=== PATIENT | female | born 1945 | race Caucasian/White ===

== ENCOUNTER → 2023-11-13 07:54 | Outpatient (REF) | payer MEDICARE, OTHER, SELFPAY ==
[2023-11-13 09:17] LABS: Urine Albumin Negative (Neg - Trace); Urine Bilirubin Negative (Negative); Urine Character Clear (Clear); Urine Color Yellow; Urine Glucose Negative (Negative); Urine Ketone Negative (Negative); Urine Leukocyte Negative (Negative); Urine Nitrite Negative (Negative); Urine Occult Blood 2+ (Negative); Urine Urobilinogen Negative (Neg - 1+)
[2023-11-13 09:18] LABS: % Basophils 0.6 % (0-2); % Eosinophils 3.2 % (0-6); % Immature Granulocytes 0.4 % (0-0.5); % Lymphocytes 19.6 % (20.5-51.1); % Monocytes 9.6 % (1.7-9.3); % Neutrophils 66.6 % (42.2-75.2); Absolute Eosinophils 0.2 10^3/uL (0-0.7); Absolute Monocytes 0.5 10^3/uL (0.1-0.6); Absolute Neutrophils 3.3 10^3/uL (1.4-6.5); Hematocrit 41.3 % (37.0-47.0); Hemoglobin 14.2 g/dL (12.0-16.0); Mean Corp Hgb Conc. 34.4 g/dL (33.0-37.0); Mean Corpuscular Hgb 31.2 pg (27.0-31.0); Mean Corpuscular Volume 90.8 fL (81.0-99.0); Mean Platelet Volume 9.5 fL (7.4-10.4); Nucleated Red Blood Cells % 0 %; Platelet Count 172 10^3/uL (130-400); Red Blood Cell Count 4.55 10^6/uL (4.20-5.40)
[2023-11-13 10:07] LABS: ALT (SGPT) 18 U/L (0-35); AST (SGOT) 34 U/L (14-36); Albumin 4.4 g/dl (3.5-5.0); Alkaline Phosphatase 104 U/L (38-126); Blood Urea Nitrogen 27 mg/dl (7-17); Calcium 9.6 mg/dl (8.4-10.2); Carbon Dioxide 29 mmol/L (22-30); Chloride 101 mmol/L (98-107); Glucose 82 mg/dl (70-99); HDL Cholesterol 80 mg/dl; LDL Cholesterol, Calculated 116 mg/dl; Sodium 138 mmol/L (135-145); Total Cholesterol 210 mg/dl (50-199); Total Protein 6.8 g/dl (6.3-8.2); Triglyceride 71 mg/dl (10-149); Very Low Density Lipoprotein 14 mg/dl (0-30); eGFR 58.39
[2023-11-13 10:30] LABS: Urine Red Blood Cell 0-2 /HPF (0-2); Urine White Cell 0-2 /HPF (0-5)
== END ==
LOC: RAD 07:54
PROVIDERS: ATTENDING PHYSICIAN Internal Medicine Geriatric Medicine
DX: E55.9 Vitamin D deficiency, unspecified (principal); Z79.899 Other long term (current) drug therapy; M85.89 Other specified disorders of bone density and structure, multiple sites; Z00.00 Encounter for general adult medical examination without abnormal findings; D68.8 Other specified coagulation defects; I10 Essential (primary) hypertension; I11.9 Hypertensive heart disease without heart failure; E78.2 Mixed hyperlipidemia; M76.32 Iliotibial band syndrome, left leg; R79.9 Abnormal finding of blood chemistry, unspecified; M25.562 Pain in left knee; Z13.31 Encounter for screening for depression
CPT/HCPCS: 36415; 77080; 80053; 80061; 81003; 81015; 82306; 85025

== ENCOUNTER → 2023-12-10 08:13 | Outpatient (REF) | payer MEDICARE, OTHER, SELFPAY | LOC: WDC 08:13 | PROVIDERS: ATTENDING PHYSICIAN Obstetrics & Gynecology Gynecology; FAMILY PHYSICIAN Internal Medicine Geriatric Medicine | DX: Z12.31 Encounter for screening mammogram for malignant neoplasm of breast (principal) | CPT/HCPCS: 77063; 77067 ==

== ENCOUNTER → 2024-02-15 07:55 | Outpatient (REF) | payer MEDICARE, OTHER, SELFPAY ==
[2024-02-15 09:20] LABS: ALT (SGPT) 23 U/L (0-35); AST (SGOT) 33 U/L (14-36); Albumin 4.3 g/dl (3.5-5.0); Alkaline Phosphatase 105 U/L (38-126); Blood Urea Nitrogen 28 mg/dl (7-17); Calcium 9.4 mg/dl (8.4-10.2); Carbon Dioxide 29 mmol/L (22-30); Chloride 105 mmol/L (98-107); Glucose 91 mg/dl (70-99); HDL Cholesterol 87 mg/dl; LDL Cholesterol, Calculated 102 mg/dl; Potassium 5.1 mmol/L (3.5-5.1); Sodium 142 mmol/L (135-145); Total Cholesterol 199 mg/dl (50-199); Total Protein 6.8 g/dl (6.3-8.2); Triglyceride 53 mg/dl (10-149); Very Low Density Lipoprotein 10 mg/dl (0-30); eGFR > 60.00
== END ==
LOC: REG 07:55
PROVIDERS: ATTENDING PHYSICIAN Internal Medicine Geriatric Medicine
DX: E78.2 Mixed hyperlipidemia (principal); Z00.00 Encounter for general adult medical examination without abnormal findings
CPT/HCPCS: 36415; 80053; 80061

== ENCOUNTER → 2024-05-24 07:50 | Outpatient (REF) | payer MEDICARE, OTHER, SELFPAY ==
[2024-05-24 09:15] LABS: HDL Cholesterol 84 mg/dl; LDL Cholesterol, Calculated 101 mg/dl; Total Cholesterol 193 mg/dl (50-199); Triglyceride 44 mg/dl (10-149); Very Low Density Lipoprotein 8 mg/dl (0-30)
== END ==
LOC: REG 07:50
PROVIDERS: ATTENDING PHYSICIAN Internal Medicine Geriatric Medicine
DX: E78.2 Mixed hyperlipidemia (principal)
CPT/HCPCS: 36415; 80061

== ENCOUNTER → 2024-10-25 07:42 | Outpatient (REF) | payer MEDICARE, OTHER, SELFPAY ==
[2024-10-25 09:42] LABS: Urine Character Clear (Clear)
[2024-10-25 09:50] LABS: ALT (SGPT) 24 U/L (0-35); AST (SGOT) 40 U/L (14-36); Albumin 4.4 g/dl (3.5-5.0); Alkaline Phosphatase 96 U/L (38-126); Blood Urea Nitrogen 28 mg/dl (7-17); Calcium 9.2 mg/dl (8.4-10.2); Carbon Dioxide 29 mmol/L (22-30); Chloride 107 mmol/L (98-107); Glucose 79 mg/dl (70-99); HDL Cholesterol 75 mg/dl; LDL Cholesterol, Calculated 97 mg/dl; Potassium 4.2 mmol/L (3.5-5.1); Sodium 140 mmol/L (135-145); Total Protein 6.8 g/dl (6.3-8.2); Very Low Density Lipoprotein 11 mg/dl (0-30); eGFR > 60.00
[2024-10-25 09:52] LABS: Urine Squamous Cell >30 /LPF (Few); Urine White Cell None Seen /HPF (0-5)
[2024-10-25 10:04] LABS: Hematocrit 41.2 % (37.0-47.0); Hemoglobin 13.7 g/dL (12.0-16.0); Mean Corp Hgb Conc. 33.3 g/dL (33.0-37.0); Mean Corpuscular Volume 93.4 fL (81.0-99.0); Nucleated Red Blood Cells % 0 %; Platelet Count 156 10^3/uL (130-400); Red Cell Dist. Width 11.9 % (11.5-14.5)
[2024-10-25 10:29] LABS: Vitamin D, 25-OH*** 60.4 ng/mL (30-80)
== END ==
LOC: REG 07:42
PROVIDERS: ATTENDING PHYSICIAN Internal Medicine Geriatric Medicine
DX: E78.2 Mixed hyperlipidemia (principal); I11.9 Hypertensive heart disease without heart failure; E55.9 Vitamin D deficiency, unspecified; M85.89 Other specified disorders of bone density and structure, multiple sites
CPT/HCPCS: 36415; 80053; 80061; 80069; 81003; 81015; 82306; 84443; 85025

== ENCOUNTER → 2024-11-04 15:08 | Outpatient (REF) | payer MEDICARE, OTHER, SELFPAY | LOC: RAD 15:08 | PROVIDERS: ATTENDING PHYSICIAN Internal Medicine Geriatric Medicine | DX: I10 Essential (primary) hypertension (principal); Z00.00 Encounter for general adult medical examination without abnormal findings; E78.2 Mixed hyperlipidemia; I11.9 Hypertensive heart disease without heart failure; H81.10 Benign paroxysmal vertigo, unspecified ear; M85.89 Other specified disorders of bone density and structure, multiple sites; E55.9 Vitamin D deficiency, unspecified; M50.30 Other cervical disc degeneration, unspecified cervical region; M16.12 Unilateral primary osteoarthritis, left hip; Z13.31 Encounter for screening for depression; M25.561 Pain in right knee; M25.562 Pain in left knee | CPT/HCPCS: 73565 ==

== ENCOUNTER → 2024-12-12 08:30 | Outpatient (REF) | payer MEDICARE, OTHER, SELFPAY | LOC: WDC 08:30 | PROVIDERS: ATTENDING PHYSICIAN Obstetrics & Gynecology Gynecology; FAMILY PHYSICIAN Internal Medicine Geriatric Medicine | DX: Z12.31 Encounter for screening mammogram for malignant neoplasm of breast (principal) | CPT/HCPCS: 77063; 77067 ==

== ENCOUNTER → 2025-03-14 07:50 | Outpatient (REF) | payer MEDICARE, OTHER, SELFPAY ==
[2025-03-14 10:56] LABS: ALT (SGPT) 22 U/L (0-35); AST (SGOT) 32 U/L (14-36); Albumin 4.2 g/dl (3.5-5.0); Alkaline Phosphatase 102 U/L (38-126); Blood Urea Nitrogen 27 mg/dl (7-17); Calcium 9.2 mg/dl (8.4-10.2); Carbon Dioxide 27 mmol/L (22-30); Chloride 106 mmol/L (98-107); Glucose 83 mg/dl (70-99); HDL Cholesterol 73 mg/dl; LDL Cholesterol, Calculated 115 mg/dl; Potassium 4.2 mmol/L (3.5-5.1); Sodium 138 mmol/L (135-145); Total Protein 6.8 g/dl (6.3-8.2); Very Low Density Lipoprotein 11 mg/dl (0-30); eGFR > 60.00
== END ==
LOC: REG 07:50
PROVIDERS: ATTENDING PHYSICIAN Internal Medicine Geriatric Medicine
DX: Z00.00 Encounter for general adult medical examination without abnormal findings (principal); E78.2 Mixed hyperlipidemia; I11.9 Hypertensive heart disease without heart failure; I10 Essential (primary) hypertension; H81.10 Benign paroxysmal vertigo, unspecified ear; M85.89 Other specified disorders of bone density and structure, multiple sites; E55.9 Vitamin D deficiency, unspecified; M50.30 Other cervical disc degeneration, unspecified cervical region; M16.12 Unilateral primary osteoarthritis, left hip; Z13.31 Encounter for screening for depression
CPT/HCPCS: 80053; 80061